=== PATIENT | male | born 1950 | race Asian ===

== ENCOUNTER 2017-09-23 11:06 | Emergency (ER) | payer MEDICARE, BC ==
[~2017-09-23 11:06] MED LIST: Iopamidol 370 76% 100 ML VIAL ONE
[2017-09-23 11:46] LABS: #Lymphocytes 0.6 thou/uL (1.20-3.40); #Monocytes 0.7 thou/uL (0.11-0.59); #Neutrophils 14.7 thou/uL (1.40-6.50); %Basophils 0.2 % (0.0-1.0); %Eosinophils 0.1 % (0.0-10.0); %Lymphocytes 3.7 % (21.0-51.0); %Monocytes 4.1 % (0.0-10.0); %Neutrophils 91.9 % (42.0-75.0); Hemoglobin 11.7 g/dL (14.0-18.0); Mean Corpuscular HGB CONC 36.9 g/dL (32.0-36.0); Mean Corpuscular Hemoglobin 34.5 pg (27.0-31.0); Mean Corpuscular Volume 93.7 fL (78.0-98.0); Mean Platelet Volume 7.6 fL (7.4-10.4); PLT Morphology Comment Appears Decreased; Platelet Count 127 thou/uL (130-400); RBC Distribution Width 12.2 % (11.5-14.5); RBC Morphology Normal; Red Blood Cell (RBC) Count 3.38 mill/uL (4.70-6.10)
[2017-09-23 11:48] LABS: ALT (SGPT) 51 U/L (8-55); AST (SGOT) 28 U/L (5-34); Albumin 4.1 g/dL (3.4-4.8); Alkaline Phosphatase 128 U/L (40-150); Anion Gap 14 mmol/L (10-20); BUN (Urea Nitrogen) 20 mg/dL (8.4-25.7); Bilirubin, Total 0.6 mg/dL (0.2-1.2); CK (CPK) 23 U/L (30-200); Calc. Creatinine Clearance 0 mL/min (70-130); Calcium 9.1 mg/dL (7.8-10.44); Carbon Dioxide 27 mmol/L (23-31); Chloride 101 mmol/L (98-107); Estimated GFR-MDRD 87; Globulin 2.6 g/dL (2.4-3.5); Glucose 151 mg/dL (80-115); Lipase 23 U/L (8-78); Protein, Total 6.7 g/dL (5.8-8.1); Sodium 138 mmol/L (136-145)
[2017-09-23 11:49] LABS: MDiff Complete? YES; Manual Diff?? NO
[2017-09-23 11:51] LABS: CKMB 0.2 ng/mL (0-6.6); Troponin I Less than 0.010 ng/mL (< 0.028)
[2017-09-23] MEDS ORDERED: Ketorolac Tromethamine 30 MG/ML VIAL ONE ×2 (12:11→12:57)
[2017-09-23 13:04] LABS: Bilirubin Negative (Negative); Blood, Urine Trace (Negative); Clarity Clear (Clear); Glucose, Urine (Dipstick) Negative (Negative); Leukocyte Negative (Negative); Nitrite Negative (Negative); Protein, Urine (Dipstick) Trace mg/dL (Neg-Trace); Urobilinogen 0.2 mg/dL (0.2-1.0)
[2017-09-23 13:09] LABS: Bacteria/HPF 1+ HPF (None Seen); RBC/HPF 0-3 HPF (0-3); Squamous Epithelial 0-3 HPF (0-3); WBC/HPF None Seen HPF (0-3)
--- NOTE | 2017-09-23 13:21 | RAD ---
PORTABLE CHEST: Date: 09/23/17 INDICATION: Chest pain. History of lung cancer. No comparison studies. FINDINGS: There is linear stranding in the left lung base suggesting mild atelectasis. No evidence of confluent infiltrate. Lungs are otherwise well aerated and clear. Heart and mediastinum appear unremarkable. O sseous structures appear unremarkable. IMPRESSION: Stranding in the left lung base suggests mild atelectasis. Associated infiltrate cannot be excluded a nd suggest short-term follow-up. POS: [facility]
--- NOTE | 2017-09-23 15:04 | CT ---
CT ANGIO CHEST WITH CONTRAST: Date: 09/23/17 Multiple axial tomograms obtained through chest following pulmonary angio protocol with multiplanar c onstruction and 3D postprocessing. INDICATION: Elevated D-Dimer with chest pain. History of brain cancer. FINDINGS: Pulmonary arteries show adequate opacification. No evidence of pulmonary embolus identified. Review of the lung schultz reveals confluent opacification in the left lung base, which is more promin ent than suggested on recent portable chest film. This opacification abuts the dome of the diaphragm and measures 3.5 x 2.5 cm in the coronal plane. Considerations include dense inflammatory consolidati on/pneumonia and neoplasm. No evidence of mediastinal adenopathy. Images through the upper abdomen unremarkable. Review of the osseous structures reveals sclerotic lesion in the fifth thoracic vertebra. This lesion takes up most of the vertebra, measuring up to 2.0 cm width. While it does have some suggestion of t rabeculation, I cannot confirm a benign hemangioma from this lesion. Given the history of prior malig sammy and lesion in the left lung base, blastic metastatic lesion must be considered. IMPRESSION: 1. No evidence of pulmonary embolus. 2. A focal area of opacification in the left lung base abutting the hemidiaphragm. Considerations in clude dense inflammatory consolidation versus neoplasm. 3. Abnormal sclerotic lesion involving the T5 vertebra. Metastatic lesion must be considered as note d above. POS: [facility]
== END 2017-09-23 16:09 | disposition short-term general hospital (02) ==
LOC: SCSER 11:06
DX: J18.9 Pneumonia, unspecified organism (principal)
CPT/HCPCS: 71045; 71275; 80053; 81003; 81015; 82550; 82553; 83605; 83690; 83880; 84484; 85025; 85379; 87040; 87149; 93005; 96361; 96365; 96366; 96375; 96376; J1885; J1956

== ENCOUNTER 2018-06-21 16:52 | Emergency (ER) | payer MEDICARE, BC ==
--- NOTE | 2018-06-21 18:14 | RAD ---
RIGHT FOOT THREE VIEWS: 06/21/18 HISTORY: Pain in foot status post fall. Soft tissue swelling is seen of the foot. The bones appear slightly demineralized. There are fracture s involving the third and fourth metatarsal neck regions. There is also some deformity to the fifth m etatarsal, although this may be related to older injury. I believe that the third and fourth metatars al changes are probably acute, although difficult to see a complete fracture line. No other significa nt findings. IMPRESSION: Probable acute third and fourth metatarsal neck fractures. Also deformity of the fifth metatarsal whi ch may be an older injury. POS: [facility]
[2018-06-21] MEDS ORDERED: Acetaminophen 500 MG TAB ONE (18:20)
== END 2018-06-21 18:27 | disposition home or self-care (01) ==
LOC: SCSER 16:52
DX: S92.331A Displaced fracture of third metatarsal bone, right foot, initial encounter for closed fracture (principal); S92.341A Displaced fracture of fourth metatarsal bone, right foot, initial encounter for closed fracture; W01.0XXA Fall on same level from slipping, tripping and stumbling without subsequent striking against object, initial encounter